=== PATIENT | male | born 1990 | race Caucasian/White ===

== ENCOUNTER 2017-03-31 10:19 | Emergency (ER) | payer OTHER ==
[~2017-03-31] VITALS: Ht 167.6 cm; Wt 100.7 kg
[2017-03-31 11:15] VITALS: Ht 167.6 cm; Wt 100.7 kg
[2017-03-31 13:25] LABS: BASOPHIL % 0.4 % (0-2); PLATELET COUNT 263 x10^3mcL (130-400); RED CELL DISTRIBUTION WIDTH 12.8 % (11.5-14.5)
[2017-03-31 13:38] LABS: CALCIUM 9.5 mg/dL (8.5-10.1); CARBON DIOXIDE 30.1 mmol/L (21-32); CHLORIDE SERUM 101 mmol/L (98-107); CREATININE SERUM 0.8 mg/dL (0.7-1.3); GFR1 > 60 mL/min; GLUCOSE SERUM 196 mg/dL (74-106); POTASSIUM SERUM 4.3 mmol/L (3.5-5.1); SODIUM SERUM 140 mmol/L (136-145)
[2017-03-31 13:42] LABS: ALBUMIN 4.3 g/dL (3.4-5.0); ALKALINE PHOSPHATASE 82 U/L (46-116); ALT/SGPT 179 U/L (16-63); AMYLASE 49 U/L (25-115); AST/SGOT 88 U/L (15-37); BILIRUBIN TOTAL 0.51 mg/dL (0.20-1.00); LIPASE 140 IU/L (73-393)
[2017-03-31 13:47] LABS: TOTAL PROTEIN, SERUM 8.4 g/dL (6.4-8.2)
[2017-03-31 15:05] VITALS: BP 141/74
== END 2017-03-31 15:05 | disposition home or self-care (01) ==
LOC: ED 10:19
PROVIDERS: Emergency Medicine
DX: K29.00 Acute gastritis without bleeding (principal); R73.9 Hyperglycemia, unspecified; D41.4 Neoplasm of uncertain behavior of bladder; R94.5 Abnormal results of liver function studies
CPT/HCPCS: 36415; 83880; Q0092